=== PATIENT | female | born 1985 | race Two or more races ===

== ENCOUNTER 2021-03-10 18:25 | Observation (INO) | payer MEDICAID, OTHER ==
[~2021-03-10] VITALS: Ht 170.2 cm; Wt 80.7 kg
[2021-03-10] MEDS ORDERED: PREN-129 OR (20:58)
== END 2021-03-10 21:15 | disposition home or self-care (01) ==
LOC: LDRP 18:25
PROVIDERS: ADMIT Obstetrics & Gynecology; ATTEND Obstetrics & Gynecology
DX: O62.9 Abnormality of forces of labor, unspecified (principal); Z3A.33 33 weeks gestation of pregnancy; Z98.891 History of uterine scar from previous surgery
CPT/HCPCS: 59025; 76815; 81002; 94760; G0378